=== PATIENT | female | born 1945 | race Caucasian/White ===

== ENCOUNTER 2016-10-27 10:07 | Day surgery (SDC) | payer MEDICARE, OTHER ==
[~2016-10-27 10:07] MED LIST: BUPIVACAINE HCL 0.75% INJ/PF (7.5 MG/1 ML) 10 ML SDV OD PRN; KETOROLAC TROMETHAMINE 0.45% 4 DROP/0.4 ML DROPERETTE OD PRN; LIDOCAINE 4% INJ/PF (40 MG/ML) 5 ML AMPUL OD PRN
[2016-10-27] MEDS ORDERED: PHENYLEPHRINE/KETOROLAC 1%-0.3% 4 ML VIAL ONE (10:14)
[2016-10-27] MEDS ORDERED: CHONDR SU A NA/HYALUR INTRAOC KIT (SURGICARE) ONE (10:15)
[2016-10-27] MEDS: BESIFLOXACIN HCL 0.6% OPH SUSP 5 ML BOTTLE OD PRN ×3 (10:35→12:00)
[2016-10-27] MEDS: TROPICAMIDE 1% OPH SOLN 3 ML OD PRN ×3 (10:35→10:54)
[2016-10-27] MEDS: TETRACAINE HCL 0.5% OPH SOLN 0.6 ML DROPERETTE OD PRN ×2 (10:35→10:55)
[2016-10-27] MEDS: CYCLOPENTOLATE 0.2%/PHENYLEPHRINE 1% OPH SOLN 2 ML OD PRN ×3 (10:35→10:54)
[2016-10-27] MEDS ORDERED: MIDAZOLAM 2 MG/2 ML INJ ONE (10:48)
--- NOTE | 2016-10-27 12:38 | [facility] DISCHARGE SUMMARY E ---
[facility] Discharge Summary NAME: CINTHIA COLLINS AGE: 71Y ADMITTED: 10/27/2016 DISCHARGED: 10/27/2016 PREOPERATIVE DIAGNOSES: 1. CATARACT, RIGHT EYE. 2. ASTIGMATISM, RIGHT EYE. POSTOPERATIVE DIAGNOSES: 1. CATARACT, RIGHT EYE. 2. ASTIGMATISM, RIGHT EYE. HOSPITAL COURSE: Patient is a 71-year-old who underwent uneventful cataract extraction with intraocular lens implant, right eye, on 10/27/2016. DISPOSITION: She will be discharged to home. She was instructed to resume preoperative medications; take Tylenol as needed for discomfort; to keep her eye shielded, to use Besivance, Ilevro, and Durezol at 3:00 p.m. and 8:00 p.m.; and to follow up in my office in 1 day. DICTATING PHYSICIAN: CHRISTI RIOS M.D. [id number] PHY#: [id number] ID: [id number] JOB#: [id number] ACCT: [id number] cc:CHRISTI RIOS M.D. >
--- NOTE | 2016-10-27 12:53 | [facility] OPERATIVE REPORT E ---
[facility] Operative Report NAME: CINTHIA COLLINS AGE: 71Y DATE OF SURGERY: 11/03/2016 ROOM: PREOPERATIVE DIAGNOSES: 1. CATARACT, RIGHT EYE. 2. ASTIGMATISM, RIGHT EYE. POSTOPERATIVE DIAGNOSES: 1. CATARACT, RIGHT EYE. 2. ASTIGMATISM, RIGHT EYE. PROCEDURE PERFORMED: Phacoemulsification with Toric intraocular lens implant, right eye. SURGEON: CHRISTI RIOS M.D. ANESTHESIA: Topical with MAC. DESCRIPTION OF PROCEDURE: The patient was brought to the operating room and placed in a seated position. Under topical anesthesia, the 0, 180, and 270 degree axes of the eye were marked using a marking level. The patient was placed in a reclining position and topical anesthesia was administered. This consisted of 4% lidocaine mixed with 0.75% Marcaine in a 1:1 ratio. A 2 x 1 cm pledget was placed in the superior fornix. A 1 x 1 cm pledget was placed in the inferior fornix. The eye was patched shut for 5 minutes. The patch and pledgets were removed. The eye was sterilely prepped and draped in the usual manner. Lid speculum was placed in the eye, and 4-0 black silk sutures were placed around the superior and the inferior rectus muscles to be used as traction. A conjunctival peritomy was made at the 135-degree axis. Hemostasis was obtained with bipolar cautery. A posterior limbal groove was created using a crescent knife and dissected anteriorly towards the cornea. A sharp point blade was used to create a paracentesis site at the 2 o'clock position. A 2.4 mm keratome was used to enter the anterior chamber through the groove. Viscoelastic was injected into the anterior chamber. An anterior capsulotomy was performed using Utrata forceps in a capsulorrhexis fashion. Hydrodissection and hydrodelineation were performed. Phacoemulsification was performed in [id number] technique. A total of 52 seconds of total phaco time was used. Following this, the I/A unit was used to remove residual cortex. Viscoelastic was injected into the capsular bag. Using the previously marked sites as reference, the 4-degree axis was marked on the eye. Intraocular lens Model [id number], 27.0 diopters, serial number [id number] was placed in the eye and rotated within 10 degrees of the final axis. The I/A unit was used to remove residual viscoelastic. The lens was rotated to the 4-degree axis and centered nicely. The wound was seen to be watertight under high and low pressure, and no sutures were placed. The 4-0 black silk sutures and lid speculum were removed. The eye was shielded after Besivance drops were placed. The patient tolerated the procedure well and was sent to the recovery room in good condition. DICTATING PHYSICIAN: CHRISTI RIOS M.D. [id number] PHY#: [id number] ID: [id number] JOB#: [id number] ACCT: [id number] cc:CHRISTI RIOS M.D. >
== END 2016-10-27 12:43 | disposition home or self-care (01) ==
LOC: SC 10:07
PROVIDERS: ATTEND Ophthalmology
PROC: 08RJ3JZ Replacement of Right Lens with Synthetic Substitute, Percutaneous Approach (ICD-10-PCS; principal; 2016-10-27 11:30)
DX: H25.813 Combined forms of age-related cataract, bilateral (principal); H52.201 Unspecified astigmatism, right eye; E11.9 Type 2 diabetes mellitus without complications; I10 Essential (primary) hypertension; E78.00 Pure hypercholesterolemia, unspecified; I70.90 Unspecified atherosclerosis; Z79.899 Other long term (current) drug therapy; Z85.89 Personal history of malignant neoplasm of other organs and systems; Z79.82 Long term (current) use of aspirin
CPT/HCPCS: 66984; 82962; V2632; J2250; J3490 ×3; A9270; C9447; 142

== ENCOUNTER 2016-11-17 09:02 | Day surgery (SDC) | payer MEDICARE ==
[~2016-11-17 09:02] MED LIST changes: -BUPIVACAINE HCL 0.75% INJ/PF (7.5 MG/1 ML) 10 ML SDV OD PRN; +BUPIVACAINE HCL 0.75% INJ/PF (7.5 MG/1 ML) 10 ML SDV OS PRN; +CHONDR SU A NA/HYALUR INTRAOC KIT (SURGICARE) ONE; +EPINEPHRINE INJ/PF 1 MG/1 ML AMPULE ONE; -KETOROLAC TROMETHAMINE 0.45% 4 DROP/0.4 ML DROPERETTE OD PRN; +KETOROLAC TROMETHAMINE 0.45% 4 DROP/0.4 ML DROPERETTE OS PRN; -LIDOCAINE 4% INJ/PF (40 MG/ML) 5 ML AMPUL OD PRN; +LIDOCAINE 4% INJ/PF (40 MG/ML) 5 ML AMPUL OS PRN; +PHENYLEPHRINE/KETOROLAC 1%-0.3% 4 ML VIAL ONE
[2016-11-17] MEDS: CYCLOPENTOLATE 0.2%/PHENYLEPHRINE 1% OPH SOLN 2 ML OS PRN ×3 (09:38→09:57)
[2016-11-17] MEDS: BESIFLOXACIN HCL 0.6% OPH SUSP 5 ML BOTTLE OS PRN ×5 (09:38→10:52)
[2016-11-17] MEDS: TROPICAMIDE 1% OPH SOLN 3 ML OS PRN ×3 (09:38→09:57)
[2016-11-17] MEDS: TETRACAINE HCL 0.5% OPH SOLN 0.6 ML DROPERETTE OS PRN ×2 (09:38→10:03)
[2016-11-17] MEDS ORDERED: MIDAZOLAM 2 MG/2 ML INJ ONE (09:55)
--- NOTE | 2016-11-17 13:23 | [facility] DISCHARGE SUMMARY E ---
[facility] Discharge Summary NAME: CINTHIA COLLINS AGE: 71Y ADMITTED: 11/17/2016 DISCHARGED: 11/17/2016 PREOPERATIVE DIAGNOSIS: Cataract, left eye. POSTOPERATIVE DIAGNOSIS: Cataract, left eye. HOSPITAL COURSE: The patient is a 71-year-old who underwent uneventful cataract extraction with toric intraocular lens implant on 11/17/2016. She will be discharged to home. She was instructed to resume preoperative medications, take Tylenol as needed for discomfort, to keep her eye shielded, to use Besivance, Durezol, and Ilevro at 3 p.m. and 8 p.m., and to followup in my office in 1 day. DICTATING PHYSICIAN: CHRISTI RIOS M.D. [id number] PHY#: [id number] ID: [id number] JOB#: [id number] ACCT: [id number] cc:CHRISTI RIOS M.D. >
--- NOTE | 2016-11-17 13:24 | [facility] OPERATIVE REPORT E ---
[facility] Operative Report NAME: CINTHIA COLLINS AGE: 71Y DATE OF SURGERY: 11/17/2016 ROOM: PREOPERATIVE DIAGNOSIS: Cataract, left eye. POSTOPERATIVE DIAGNOSIS: Cataract, left eye. PROCEDURE PERFORMED: Phacoemulsification with toric intraocular lens, left eye. SURGEON: Jayla Rios MD ANESTHESIA: Topical with MAC. INDICATIONS FOR SURGERY: Difficulty driving at night due to glare. Best corrected visual acuity with glare 20/40. PROCEDURE: The patient was taken to the Operating Room and placed in a seated position. The 0, 270 and 180 degree axis were marked with a marking level. The patient was placed in supine position and topical anesthesia was administered. This consisted of instrument wipe pledgets soaked in a solution of 4% Xylocaine mixed with 0.75% Marcaine in a 1:1 ratio. A 2 x 1 cm pledget was placed in the superior fornix. A 1 x 1 cm pledget was placed in the inferior fornix. The eye was patched shut for 5 minutes. The eye was sterilely prepped and draped in the usual manner. A lid speculum was placed in the eye and 4-0 black silk sutures were placed around the superior and the inferior rectus muscles to be used as traction. A conjunctival peritomy was made at the 135-degree axis. Hemostasis was obtained with bipolar cautery. A posterior limbal groove was created using a crescent knife and dissected anteriorly towards the cornea. A sharp point blade was used to create a paracentesis site at the 5 o'clock position. A 2.4-mm keratome was used to enter the anterior chamber through the groove. Viscoelastic was injected into the anterior chamber. An anterior capsulotomy was performed using Utrata forceps in a capsulorrhexis fashion. Hydrodissection and hydrodelineation were performed. Phacoemulsification was performed in [id number] technique. Total phaco time 5.97 CDE. Following this, the I/A unit was used to remove residual cortex. Viscoelastic was placed in the capsular bag. Intraocular lens model SN6AT4, 27.5 diopters, serial number [id number], was injected in the eye and placed within 10 degrees of the final axis. The axis of 180 was marked on the eye prior to inserting the lens. The I/A unit was used to remove residual viscoelastic. The lens was rotated to 180 degree axis and centered nicely. The wound was seen to be watertight under high and low pressure, and no sutures were placed. Then, 4-0 black silk sutures and lid speculum were removed. The eye was shielded after Besivance drops were placed. The patient tolerated the procedure well and was sent to recovery room in good condition. DICTATING PHYSICIAN: JAYLA RIOS M.D. [id number] PHY#: [id number] ID: [id number] JOB#: [id number] ACCT: [id number] cc:JAYLA RIOS M.D. >
== END 2016-11-17 11:28 | disposition home or self-care (01) ==
LOC: SC 09:02
PROVIDERS: ATTEND Ophthalmology
PROC: 08RK3JZ Replacement of Left Lens with Synthetic Substitute, Percutaneous Approach (ICD-10-PCS; principal; 2016-11-17 10:30)
DX: H25.812 Combined forms of age-related cataract, left eye (principal); Z96.1 Presence of intraocular lens; I10 Essential (primary) hypertension; Z79.899 Other long term (current) drug therapy; Z79.82 Long term (current) use of aspirin
CPT/HCPCS: 66984; 82962; V2632; J2250; J3490 ×3; A9270; C9447; 142; J0171

== ENCOUNTER 2018-08-24 05:55 | Observation (INO) | payer MEDICARE ==
[2018-08-24] MEDS ORDERED: ASPIRIN 81 MG TABLET, CHEWABLE PO ONE ×2 (06:20→06:35)
--- NOTE | 2018-08-24 06:46 | ER Document Report ---
ED Cardiac - General Chief Complaint: Palpitations Stated Complaint: PALPITATIONS Time Seen by Provider: 08/24/18 06:22 TRAVEL OUTSIDE OF THE [place] IN LAST 30 DAYS: No - HPI Patient complains to provider of: Chest tightness Was the onset of pain: Gradual Is the pain a: New problem Chest pain location: Substernal Quality of pain: Achy Chest pain radiation location: None Severity now: Mild Severity at worst: Mild Chest pain precipitating factors: At Rest Cardiac risk factors: Diabetes, Hypertension, Dyslipidemia Associated symptoms: None Exacerbated by: Denies Relieved by: Nothing Notes: Patient is a 73-year-old female that presents to the emergency department for chief complaint of palpitations and chest pain. Patient reports intermittent episodes of palpitations when she wakes up in the morning or lays on her left side over the last few months. She has an appointment to establish care with Dr. Willingham for these palpitations on Wednesday. Yesterday and today she had associated chest pain with her palpitations. She states it is substernal and nonradiating. The pain feels like a tight achy sensation. She denies aggravating or relieving factors. The pain started when she woke up this morning with the palpitations. The palpitations have now resolved but the achy pain continues. She denies any associated symptoms. She denies ever having a stress test done before. Her mother had heart disease in her 80s but there is no other family history of heart disease. She took a baby aspirin yesterday but has not had any today. Past Medical History: Retention, hyperlipidemia, diabetes, hypothyroidism Past Surgical History: Hysterectomy, partial colectomy Social History: Denies drugs alcohol and tobacco Family History: Reviewed and noncontributory for presenting illness Allergies: Reviewed, see documented allergy list. REVIEW OF SYSTEMS: CONSTITUTIONAL : No fever No chills No diaphoresis No recent illness EENT: No vision changes No congestion No sore throat CARDIOVASCULAR: chest pain palpitations RESPIRATORY: No shortness of breath No cough No difficulty breathing GASTROINTESTINAL: No abdominal pain No nausea No vomiting No diarrhea GENITOURINARY: No dysuria No hematuria No difficulty urinating MUSCULOSKELETAL: No back pain No leg pain No arm pain SKIN: No rashes No lesions LYMPHATIC: No swollen, enlarged glands. NEUROLOGICAL: No lightheadedness No headache No weakness No paresthesias PSYCHIATRIC: No anxiety No depression PHYSICAL EXAMINATION: Vital signs reviewed, nursing noted reviewed. GENERAL: Well-appearing, well-nourished and in no acute distress. HEAD: Atraumatic, normocephalic. EYES: Eyes appear normal, extraocular movements intact, sclera anicteric, conjunctiva are normal. ENT: nares patent, oropharynx clear without exudates. Moist mucous membranes. NECK: Normal range of motion, supple without lymphadenopathy LUNGS: Breath sounds clear to auscultation bilaterally and equal. No wheezes rales or rhonchi. HEART: Regular rate and rhythm without murmurs ABDOMEN: Soft, nontender, normoactive bowel sounds. No rebound, guarding, or rigidity. No masses appreciated. EXTREMITIES: Nontender, good range of motion, no pitting or edema. NEUROLOGICAL: No focal neurological deficits. Moves all extremities spontaneously Motor and sensory grossly intact on exam. PSYCH: Normal mood, normal affect. SKIN: Warm, Dry, normal turgor, no rashes or lesions noted on exposed skin - Related Data Allergies/Adverse Reactions: urea Allergy (Uncoded 08/07/16 05:39) Past Medical History - Social History Smoking Status: Never Smoker Family History: Reviewed & Not Pertinent - Past Medical History Cardiac Medical History: Reports: Hx Hypercholesterolemia - on meds, Hx Hypertension - on meds Denies: Hx Atrial Fibrillation, Hx Congestive Heart Failure, Hx Coronary Artery Disease, Hx Heart Attack, Hx Peripheral Vascular Disease, Hx Heart Murmur Pulmonary Medical History: Denies: Hx Asthma Neurological Medical History: Denies: Hx Cerebrovascular Accident, Hx Seizures Endocrine Medical History: Reports: Hx Hypothyroidism - on meds. Denies: Hx Graves' Disease, Hx Hyperthyroidism Renal/ Medical History: Denies: Hx Ovarian Cysts, Hx Pelvic Inflammatory Disease Malignancy Medical History: Reports: Hx Cervical Cancer. Denies: Hx Breast Cancer, Hx Leukemia, Hx Ovarian Cancer GI Medical History: Reports: Hx Gastroesophageal Reflux Disease - occ. Denies: Hx Crohn's Disease, Hx Hepatitis, Hx Hiatal Hernia, Hx Irritable Bowel, Hx Liver Failure, Hx Pancreatitis, Hx Ulcer Musculoskeletal Medical History: Reports Hx Arthritis - generalized, Denies Hx Fibromyalgia, Denies Hx Muscular Dystrophy Traumatic Medical History: Denies: Hx Fractures Infectious Medical History: Denies: Hx Hepatitis, Hx HIV Past Surgical History: Reports: Hx Hysterectomy. Denies: Hx Appendectomy, Hx Bowel Surgery, Hx Cholecystectomy, Hx Colostomy, Hx Coronary Artery Bypass Graft , Hx Gastric Bypass Surgery, Hx Herniorrhaphy, Hx Mastectomy, Hx Open Heart Surgery, Hx Pacemaker, Hx Tonsillectomy, Hx Tubal Ligation Review of Systems - Review of Systems Notes: Dictated Physical Exam - Vital signs Vitals: Temp Pulse Resp BP Pulse Ox 98.4 F 75 14 175/70 H 99 08/24/18 05:58 08/24/18 05:58 08/24/18 05:58 08/24/18 05:58 08/24/18 05:58 - Notes Notes: Dictated Course - Re-evaluation Re-evalutation: 08/24/18 06:46 Vitals reviewed. Nursing notes reviewed. Patient given aspirin for her chest pain and placed on telemetry monitoring. EKG shows no acute ischemic changes or dysrhythmia 08/24/18 08:29 Patient reevaluated and is pain-free. Lab work including troponin is unremarkable. She has no electrolyte derangements. Chest x-ray is normal. Patient will be admitted to the hospital for telemetry monitoring and further evaluation of her chest pain. Case discussed with Funmilayo Joyce who accepted admission Laboratory 08/24/18 08/24/18 08/24/18 06:41 06:41 06:41 WBC 7.7 RBC 4.21 Hgb 13.0 Hct 37.9 MCV 90 MCH 31.0 MCHC 34.4 RDW 12.9 Plt Count 279 Seg Neutrophils % 56.0 Lymphocytes % 27.7 Monocytes % 8.6 Eosinophils % 6.6 H Basophils % 1.1 Absolute Neutrophils 4.3 Absolute Lymphocytes 2.1 Absolute Monocytes 0.7 Absolute Eosinophils 0.5 Absolute Basophils 0.1 Sodium 142.7 Potassium 4.1 Chloride 101 Carbon Dioxide 27 Anion Gap 15 BUN 19 Creatinine 1.02 Est GFR ( Amer) > 60 Est GFR (Non-Af Amer) 53 L Glucose 141 H Calcium 9.9 Total Bilirubin 0.4 Direct Bilirubin 0.1 Neonat Total Bilirubin Not Reportable Neonat Direct Bilirubin Not Reportable Neonat Indirect Bili Not Reportable AST 19 ALT 14 Alkaline Phosphatase 80 Troponin I < 0.012 Total Protein 6.9 Albumin 4.1 TSH 08/24/18 06:41 WBC RBC Hgb Hct MCV MCH MCHC RDW Plt Count Seg Neutrophils % Lymphocytes % Monocytes % Eosinophils % Basophils % Absolute Neutrophils Absolute Lymphocytes Absolute Monocytes Absolute Eosinophils Absolute Basophils Sodium Potassium Chloride Carbon Dioxide Anion Gap BUN Creatinine Est GFR ( Amer) Est GFR (Non-Af Amer) Glucose Calcium Total Bilirubin Direct Bilirubin Neonat Total Bilirubin Neonat Direct Bilirubin Neonat Indirect Bili AST ALT Alkaline Phosphatase Troponin I Total Protein Albumin TSH 2.36 Chest X-Ray 08/24/18 06:20 IMPRESSION: No acute cardiopulmonary findings. - Vital Signs Vital signs: Temp Pulse Resp BP Pulse Ox 98.4 F 75 14 131/55 H 94 08/24/18 05:58 08/24/18 05:58 08/24/18 07:01 08/24/18 07:01 08/24/18 07:01 - Laboratory Result Diagrams: 08/24/18 06:41 08/24/18 06:41 Laboratory results interpreted by me: 08/24/18 08/24/18 06:41 06:41 Eosinophils % 6.6 H Est GFR (Non-Af Amer) 53 L Glucose 141 H - EKG Interpretation by Me Additional EKG results interpreted by me: 08/24/18 06:45 Interpreted by myself [id number]: Normal sinus rhythm, rate 78, normal axis, no ectopy, no ST elevation, probable old inferior infarct Discharge - Discharge Clinical Impression: Palpitations Chest pain Qualifiers: Chest pain type: unspecified Qualified Code(s): R07.9 - Chest pain, unspecified Condition: Stable Disposition: ADMITTED OBSERVATION Admitting Provider: Hospitalist Unit Admitted: Telemetry
[2018-08-24 06:50] LABS: ABSOLUTE BASOPHILS # (AUTO) 0.1 10^3/uL (0.0-0.2); ABSOLUTE EOSINOPHILS # (AUTO) 0.5 10^3/uL (0.0-0.6); ABSOLUTE LYMPHOCYTES (AUTO) 2.1 10^3/uL (0.5-4.7); ABSOLUTE MONOCYTES (AUTO) 0.7 10^3/uL (0.1-1.4); ABSOLUTE NEUT (AUTO) 4.3 10^3/uL (1.7-8.2); BASOPHILS % (AUTO) 1.1 % (0-2); EOSINOPHILS % (AUTO) 6.6 % (0-6); HEMATOCRIT 37.9 % (36.0-47.0); LYMPHOCYTES % (AUTO) 27.7 % (13-45); MEAN CORPUSCULAR HGB CONC 34.4 g/dL (32.0-36.0); MEAN CORPUSCULAR VOLUME 90 fl (80-97); MONOCYTES % (AUTO) 8.6 % (3-13); PLATELET COUNT 279 10^3/uL (150-450); RED BLOOD COUNT 4.21 10^6/uL (3.72-5.28); RED CELL DISTRIBUTION WIDTH 12.9 % (11.5-14.0); TOTAL CELLS COUNTED % (AUTO) 100 %; WHITE BLOOD COUNT 7.7 10^3/uL (4.0-10.5)
[2018-08-24 07:08] LABS: ALANINE AMINOTRANSFERASE 14 U/L (9-52); ALBUMIN 4.1 g/dL (3.5-5.0); ALKALINE PHOSPHATASE 80 U/L (38-126); ANION GAP 15 (5-19); ASPARTATE AMINO TRANSFERASE 19 U/L (14-36); BILIRUBIN,DIRECT 0.1 mg/dL (0.0-0.4); BILIRUBIN,TOTAL 0.4 mg/dL (0.2-1.3); BLOOD UREA NITROGEN 19 mg/dL (7-20); CALCIUM 9.9 mg/dL (8.4-10.2); CARBON DIOXIDE 27 mmol/L (22-30); CHLORIDE 101 mmol/L (98-107); GLUCOSE 141 mg/dL (75-110); POTASSIUM 4.1 mmol/L (3.6-5.0); SODIUM 142.7 mmol/L (137-145); TOTAL PROTEIN 6.9 g/dL (6.3-8.2)
--- NOTE | 2018-08-24 07:08 | RADIOLOGY REPORT (SQ) ---
EXAM DESCRIPTION: XR CHEST 1 VIEW COMPLETED DATE/TME: 08/24/2018 06:20 CLINICAL HISTORY: 73 years Female, cp COMPARISON: None. NUMBER OF VIEWS/TECHNIQUE: 1/AP FINDINGS: Adequate lung volume, clear parenchyma, normal cardiac silhouette, and intact bony thorax. IMPRESSION: No acute cardiopulmonary findings.
--- NOTE | 2018-08-24 07:45 | EKG REPORT ---
SEVERITY:- ABNORMAL ECG - SINUS RHYTHM PROBABLE INFERIOR INFARCT, OLD LATERAL LEADS ARE ALSO INVOLVED : Confirmed by: Sudhir Garcia MD 24-Aug-2018 07:44:47
[2018-08-24] MEDS ORDERED: NITROGLYCERIN 0.4 MG/TAB 25 TAB/BOTTLE SL PRN (09:08)
[2018-08-24] MEDS ORDERED: MORPHINE SULFATE 10 MG/ML INJ IV PRN (09:08)
[2018-08-24] MEDS ORDERED: PROMETHAZINE HCL INJ 25 MG/1 ML VIAL IV PRN (09:08)
[2018-08-24] MEDS ORDERED: DOCUSATE SODIUM 100 MG CAPSULE PO PRN (09:08)
[2018-08-24] MEDS ORDERED: MAG HYDROX/AL HYDROX/SIMETH SUSP 30 ML UDCUP PO PRN (09:08)
[2018-08-24] MEDS ORDERED: DEXTROSE 50%-WATER 25 GM/50 ML DISP.SYRIN IV PRN ×2 (09:12)
[2018-08-24] MEDS ORDERED: GLUCAGON,HUMAN RECOMB 1 MG INJ IM PRN (09:12)
[2018-08-24] MEDS ORDERED: INSULIN LISPRO 100 UNIT/ML 3 ML VIAL SUBCUT PRN (09:12)
[2018-08-24] MEDS ORDERED: DEXTROSE 40% GEL 15 GM TUBE PO PRN ×2 (09:12)
--- NOTE | 2018-08-24 09:36 | PDOC H&P ---
History of Present Illness Admission Date/PCP: ISACC BENNETT MD Patient complains of: Chest pain, palpitations History of Present Illness: CINTHIA COLLINS is a 73 year old female with a past medical history significant for hypertension, hyperlipidemia, diabetes mellitus, and remote vaginal cancer who presented to the emergency department today with a complaint of racing heartbeat and chest discomfort. The patient has had intermittent episodes of palpitations over the last several months (most often noted when lying on her left side) and actually has her first appointment scheduled with Dr. Willingham's office on Wednesday. However, the last 2 mornings she has awoken in the corporate consultant hours to use the restroom and found that she has had a racing heart rate prior to getting out of bed. The patient states that on both occasions the episode resolved after Valsalva maneuver (she had read on the Internet that intentional cough could occasionally resolve rapid heart rates). She decided to be seen in the emergency department today as these episodes were different than previously; they were associated with lightheadedness and mild chest discomfort. She states that her chest discomfort was vague in nature, nonradiating, and also resolved with Valsalva. Evaluation in the emergency department was unremarkable. EKG demonstrated normal sinus rhythm without acute changes, benign chest x-ray, and essentially normal laboratory evaluation including a troponin of <0.012 and normal TSH. Of note, the electrical tech/project manager reported frequent PVCs, especially shortly after her arrival. The patient is referred to the hospitalist service for observational admission and chest pain rule out. Past Medical History Cardiac Medical History: Reports: Hyperlipidema, Hypertension Denies: Atrial Fibrillation, Congestive Heart Failure, Coronary Artery Disease, Myocardial Infarction, Peripheral Vascular Disease, Heart Murmur Pulmonary Medical History: Denies: Asthma, Chronic Obstructive Pulmonary Disease (COPD) Neurological Medical History: Denies: Ischemic CVA, Seizures Endocrine Medical History: Reports: Diabetes Mellitus Type 2, Hypothyroidism Renal/ Medical History: Reports: None Malignancy Medical History: Reports: Other - Vaginal cancer Denies: Breast Cancer, Leukemia, Ovarian Cancer GI Medical History: Reports: Gastroesophageal Reflux Disease Denies: Crohn's Disease, Hepatitis, Hiatal Hernia Musculoskeltal Medical History: Reports: Arthritis Denies: Fibromyalgia Skin Medical History: Reports: None Psychiatric Medical History: Reports: None Traumatic Medical History: Reports: None Hematology: Reports: Anemia Denies: Hemophilia Infectious Medical History: Reports: None Past Surgical History Past Surgical History: Reports: Hysterectomy Denies: Cardiac Catheterization Social History Information Source: Patient Smoking Status: Never Smoker Frequency of Alcohol Use: None Hx Recreational Drug Use: No Hx Prescription Drug Abuse: No Family History Family History: Reviewed & Not Pertinent, CAD Parental Family History Reviewed: Yes Children Family History Reviewed: Yes Sibling(s) Family History Reviewed.: Yes Medication/Allergy Home Medications: Levothyroxine Sodium [Synthroid 50 Mcg Tablet] 50 mcg PO DAILY 04/05/13 Multivitamin [Multi Vitamin Daily] 1 each PO DAILY 04/05/13 [place]-3 Fatty Acids/Fish Oil [Fish Oil 1,[address]] 1 each PO DAILY Pravastatin Sodium [Pravachol] 40 mg PO DAILY 04/05/13 Saxagliptin HCl/Metformin HCl [Kombiglyze Xr 2.5-1,000 mg Tab] 1 each PO BID Valsartan/Hydrochlorothiazide [Valsartan-Hctz 320-12.5 mg Tab] 1 each PO DAILY 04/11/13 Aspirin [Aspirin EC] 81 mg PO DAILY 07/31/16 Besifloxacin HCl [Besivance] 1 drop OP . 3 & 8 PM TODAY 10/27/16 Difluprednate [Durezol] 1 drop OP . 3 & 8 PM TODAY 10/27/16 Nepafenac [Ilevro] 1 drop OP . 3 & 8 PM TODAY 10/27/16 Allergies/Adverse Reactions: urea Allergy (Uncoded 08/07/16 05:39) Review of Systems Constitutional: ABSENT: chills, fever(s), headache(s), weight gain, weight loss Eyes: ABSENT: visual disturbances Ears: ABSENT: hearing changes Cardiovascular: PRESENT: chest pain, palpitations. ABSENT: dyspnea on exertion , edema, orthropnea Respiratory: ABSENT: cough, hemoptysis Gastrointestinal: ABSENT: abdominal pain, constipation, diarrhea, hematemesis, hematochezia, nausea, vomiting Genitourinary: ABSENT: dysuria, hematuria Musculoskeletal: ABSENT: joint swelling Integumentary: ABSENT: rash, wounds Neurological: PRESENT: dizziness. ABSENT: abnormal gait, abnormal speech, confusion, focal weakness, syncope Psychiatric: ABSENT: anxiety, depression, homidical ideation, suicidal ideation Endocrine: ABSENT: cold intolerance, heat intolerance, polydipsia, polyuria Hematologic/Lymphatic: ABSENT: easy bleeding, easy bruising Physical Exam Vital Signs: Temp Pulse Resp BP Pulse Ox 98.4 F 75 15 155/76 H 97 08/24/18 05:58 08/24/18 05:58 08/24/18 08:31 08/24/18 08:31 08/24/18 08:31 Intake & Output 08/23/18 08/24/18 08/25/18 06:59 06:59 06:59 Weight 81 kg General appearance: PRESENT: no acute distress, cooperative - Pleasant, well- developed, well-nourished - Overweight Head exam: PRESENT: atraumatic, normocephalic Eye exam: PRESENT: conjunctiva pink, EOMI, PERRLA. ABSENT: scleral icterus Ear exam: PRESENT: normal external ear exam Mouth exam: PRESENT: moist, tongue midline Neck exam: ABSENT: carotid bruit, JVD, lymphadenopathy, thyromegaly Respiratory exam: PRESENT: clear to auscultation catherine, symmetrical, unlabored. ABSENT: rales, rhonchi, wheezes Cardiovascular exam: PRESENT: RRR, +S1, +S2. ABSENT: diastolic murmur, rubs, systolic murmur Pulses: PRESENT: normal dorsalis pedis pul Vascular exam: PRESENT: normal capillary refill GI/Abdominal exam: PRESENT: normal bowel sounds, soft. ABSENT: distended, guarding, mass, organolmegaly, rebound, tenderness Rectal exam: PRESENT: deferred Extremities exam: PRESENT: full ROM. ABSENT: calf tenderness, clubbing, pedal edema Neurological exam: PRESENT: alert, awake, oriented to person, oriented to place , oriented to time, oriented to situation, CN II-XII grossly intact. ABSENT: motor sensory deficit Psychiatric exam: PRESENT: appropriate affect, normal mood. ABSENT: homicidal ideation, suicidal ideation Skin exam: PRESENT: dry, intact, warm. ABSENT: cyanosis, rash Results Laboratory Results: 08/24/18 06:41 08/24/18 06:41 08/24/18 08/24/18 08/24/18 06:41 06:41 06:41 WBC 7.7 RBC 4.21 Hgb 13.0 Hct 37.9 MCV 90 MCH 31.0 MCHC 34.4 RDW 12.9 Plt Count 279 Seg Neutrophils % 56.0 Lymphocytes % 27.7 Monocytes % 8.6 Eosinophils % 6.6 H Basophils % 1.1 Absolute Neutrophils 4.3 Absolute Lymphocytes 2.1 Absolute Monocytes 0.7 Absolute Eosinophils 0.5 Absolute Basophils 0.1 Sodium 142.7 Potassium 4.1 Chloride 101 Carbon Dioxide 27 Anion Gap 15 BUN 19 Creatinine 1.02 Est GFR ( Amer) > 60 Est GFR (Non-Af Amer) 53 L Glucose 141 H Calcium 9.9 Total Bilirubin 0.4 AST 19 ALT 14 Alkaline Phosphatase 80 Total Protein 6.9 Albumin 4.1 TSH 2.36 08/24/18 06:41 Troponin I < 0.012 Impressions: Chest X-Ray 08/24/18 06:20 IMPRESSION: No acute cardiopulmonary findings. Assessment & Plan - Diagnosis (1) Chest pain Qualifiers: Chest pain type: unspecified Qualified Code(s): R07.9 - Chest pain, unspecified Is this a current diagnosis for this admission?: Yes Plan: The patient reports vague, nonradiating, chest discomfort associated with sensation of palpitations/heart racing that resolved following a Valsalva maneuver. Her discomfort is likely related to PSVT or benign ectopic beats felt while lying down as the patient reports that symptoms tend to occur in the corporate consultant hours and most frequently when lying to her left side. However, she does have a moderate HEART Score of 5; the patient has multiple risk factors including age, diabetes mellitus, hypertension, hyperlipidemia, obesity and moderately suspicious HPI. She is admitted to telemetry for chest pain rule out. Patient is admitted to the medical floor and continuous cardiac telemetry. TSH is normal. Initial troponin is negative; will continue to trend. Lipid panel and A1c with a.m. lab work. We will obtain an echocardiogram. Anticipate stress testing tomorrow morning. Daily aspirin and full dose Lovenox. Cardiac diet with daily weights. We will resume the patient's antihypertensive medications once reconciled by pharmacy. (2) Palpitations Is this a current diagnosis for this admission?: Yes Plan: As above. (3) Hyperlipidemia Is this a current diagnosis for this admission?: Yes Plan: Lipid panel with a.m lab work. Cardiac diet. Resume home dose statin therapy once reconciled. (4) Hypertension Is this a current diagnosis for this admission?: Yes Plan: Cardiac diet. Will resume home medication regiment once reconciled. (5) Hypothyroidism Is this a current diagnosis for this admission?: Yes Plan: TSH 2.36 Will resume home dose levothyroxine once reconciled. - Time Time Spent: 50 to 70 Minutes Medications reviewed and adjusted accordingly: Yes Anticipated discharge: Home Within: within 24 hours
[2018-08-24] MEDS: ASPIRIN 81 MG TABLET, CHEWABLE PO SCH (10:06)
[2018-08-24] MEDS: ENOXAPARIN SODIUM INJ 80 MG/0.8 ML DISP.SYRIN SUBCUT SCH ×2 (10:07→21:32)
[2018-08-24] MEDS: VALSARTAN 160 MG TABLET PO SCH (11:45)
[2018-08-24] MEDS: HYDROCHLOROTHIAZIDE 12.5 MG TABLET PO SCH (11:45)
--- NOTE | 2018-08-24 13:52 | XCELERA REPORT ---
[address] [address] Transthoracic Echocardiogram Report Name: CINTHIA COLLINS Age: 73 yrs Gender: Female : 1945 Patient Status: Inpatient Patient Location: [address] [place], [place] [address] Study Date: 08/24/2018 11:04 AM Height: 64 in Weight: 178 lb BSA: 1.9 m2 Procedure: A complete two-dimensional transthoracic echocardiogram was performed (2D, M-mode, spectral and color flow Doppler). The study was technically adequate with some images being suboptimal in quality. Reason For Study: Palpitations, Chest pain Ordering Physician: RIKA SÁNCHEZ, ALEXUSC Performed By: Olga Carson Interpretation Summary The left ventricular ejection fraction is within normal limits. There is mild concentric left ventricular hypertrophy. The left ventricle is grossly normal size. Doppler measurements suggest pseudonormalized left ventricular relaxation, which is associated with grade II/IV or mild to moderate diastolic dysfunction Wall motion cannot be accurately commented on, but no definite regional wall motion abnormalities noted. Borderline right ventricular enlargement. The right ventricular systolic function is normal. The left atrium is mildly dilated. The right atrium is normal in size There is a trace amount of mitral regurgitation There is no mitral valve stenosis. There is a mild amount of aortic regurgitation There is no aortic valve stenosis There is a trace to mild amount of tricuspid regurgitation There is mild pulmonary hypertension by echo Right ventricular systolic pressure is estimated to be elevated at 30-40mmHg. The aortic root is not well visualized but is probably normal size. There is no pericardial effusion. MMode/2D Measurements & Calculations RVDd: 3.4 cm LVIDd: 4.0 cm FS: 43.4 % Ao root diam: 2.3 cm IVSd: 0.96 cm LVIDs: 2.3 cm EDV(Teich): 69.0 ml Ao root area: 4.3 cm2 LVPWd: 1.0 cm ESV(Teich): 17.2 ml LA dimension: 4.0 cm EF(Teich): 75.1 % Doppler Measurements & Calculations MV E max snow: MV P1/2t max snow: Ao V2 max: LV V1 max P.3 cm/sec 92.3 cm/sec 149.3 cm/sec 4.0 mmHg MV A max snow: MV P1/2t: 72.9 msec Ao max P.9 mmHg LV V1 max: 126.4 cm/sec MVA(P1/2t): 3.0 cm2 99.8 cm/sec MV E/A: 0.73 MV dec slope: 371.1 cm/sec2 MV dec time: 0.23 sec PA V2 max: TR max snow: MV P1/2t-pr_phl: 92.8 cm/sec 281.0 cm/sec 72.9 msec PA max P.4 mmHg TR max P.6 mmHg Left Ventricle The left ventricle is grossly normal size. There is mild concentric left ventricular hypertrophy. The left ventricular ejection fraction is within normal limits. Doppler measurements suggest pseudonormalized left ventricular relaxation, which is associated with grade II/IV or mild to moderate diastolic dysfunction. Wall motion cannot be accurately commented on, but no definite regional wall motion abnormalities noted. Right Ventricle Borderline right ventricular enlargement. There is normal right ventricular wall thickness. The right ventricular systolic function is normal. Atria The right atrium is normal in size. The left atrium is mildly dilated. Interarterial septum not well visualized and not well dopplered. Cannot comment on ASD/PFO presence. Mitral Valve The mitral valve is grossly normal. There is no mitral valve stenosis. There is a trace amount of mitral regurgitation. Aortic Valve The aortic valve is grossly normal. There is no aortic valve stenosis. There is a mild amount of aortic regurgitation. Tricuspid Valve The tricuspid valve is not well visualized, but is grossly normal. There is no tricuspid stenosis. There is a trace to mild amount of tricuspid regurgitation. There is mild pulmonary hypertension by echo. Right ventricular systolic pressure is estimated to be elevated at 30-40mmHg. Pulmonic Valve The pulmonic valve is not well visualized. Great Vessels The aortic root is not well visualized but is probably normal size. The inferior vena cava appeared normal and decreased > 50% with respiration (RAP 5-10 mmHg). Effusions There is no pericardial effusion. : JOSIAH CASTANON > Paulina Willingham
[2018-08-24] MEDS: LANSOPRAZOLE 15 MG TAB.RAP.DR PO SCH (16:09)
--- NOTE | 2018-08-24 19:48 | PDOC CONSULTATION ---
Consultation Consult Date: 08/24/18 Attending physician:: ERIKA CROCKETT Consult reason:: Palpitations and chest pain History of Present Illness Admission Date/PCP: 08/24/18 09:14 ISACC BENNETT MD Patient complains of: Palpitations and chest pain History of Present Illness: CINTHIA COLLINS is a 73 year old female with a past medical history significant for hypertension, hyperlipidemia, diabetes mellitus, and remote vaginal cancer who presented to the emergency department today with a complaint of racing heartbeat and chest discomfort. The patient has had intermittent episodes of palpitations over the last several months (most often noted when lying on her left side) and actually has her first appointment scheduled with Dr. Willingham's office on Wednesday. 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 The patient states that on both occasions the episode resolved after Valsalva maneuver (she had read on the Internet that intentional cough could occasionally resolve rapid heart rates). She decided to be seen in the emergency department today as these episodes were different than previously; they were associated with lightheadedness and mild chest discomfort. She states that her chest discomfort was vague in nature, nonradiating, and also resolved with Valsalva. Evaluation in the emergency department was unremarkable. EKG demonstrated normal sinus rhythm without acute changes, benign chest x-ray, and essentially normal laboratory evaluation including a troponin of <0.012 and normal TSH. Of note, the pre sales technical engineer reported frequent PVCs, especially shortly after her arrival. The patient is referred to the hospitalist service for observational admission and chest pain rule out. This history obtained by the hospitalist was reviewed and confirmed. Patient claims that most of her spells happened when she is laying down, on her left side. Patient has awakened up with this palpitations. Patient does give history of snoring, daytime fatigue and some sleepiness. Past Medical History Cardiac Medical History: Reports: Hyperlipidema, Hypertension Denies: Atrial Fibrillation, Congestive Heart Failure, Coronary Artery Disease, Myocardial Infarction, Peripheral Vascular Disease, Heart Murmur Pulmonary Medical History: Denies: Asthma, Chronic Obstructive Pulmonary Disease (COPD) Neurological Medical History: Denies: Ischemic CVA, Seizures Endocrine Medical History: Reports: Diabetes Mellitus Type 2, Hypothyroidism Denies: Hyperthyroidism Renal/ Medical History: Reports: None Malignancy Medical History: Reports: Cervical Cancer, Other - Vaginal cancer Denies: Breast Cancer, Leukemia, Ovarian Cancer GI Medical History: Reports: Gastroesophageal Reflux Disease Denies: Crohn's Disease, Hepatitis, Hiatal Hernia Musculoskeltal Medical History: Reports: Arthritis Denies: Fibromyalgia Skin Medical History: Reports: None Psychiatric Medical History: Reports: None Traumatic Medical History: Reports: None Hematology: Reports: Anemia Denies: Hemophilia, Sickle Cell Disease Infectious Medical History: Reports: None Denies: HIV Past Surgical History Past Surgical History: Reports: Hysterectomy Denies: Amputation, Appendectomy, Cardiac Catheterization, Cholecystectomy, Colostomy, Coronary Artery Bypass Graft, Gastric Bypass Surgery, Herniorrhaphy, Mastectomy, Pacemaker, Tonsillectomy, Tubal Ligation Social History Information Source: Patient Smoking Status: Never Smoker Frequency of Alcohol Use: None Hx Recreational Drug Use: No Drugs: None Hx Prescription Drug Abuse: No - Advance Directive Resuscitation Status: Full Code Family History Family History: Reviewed & Not Pertinent, CAD Parental Family History Reviewed: Yes Children Family History Reviewed: Yes Sibling(s) Family History Reviewed.: Yes Medication/Allergy Home Medications: Levothyroxine Sodium [Synthroid 50 Mcg Tablet] 50 mcg PO Q6AM 04/05/13 Multivitamin [Multi Vitamin Daily] 1 each PO DAILY 04/05/13 [place]-3 Fatty Acids/Fish Oil [Fish Oil 1,[address]] 1 each PO DAILY Pravastatin Sodium [Pravachol] 40 mg PO QHS 04/05/13 Saxagliptin HCl/Metformin HCl [Kombiglyze Xr 2.5-1,000 mg Tab] 1 tab PO BID Valsartan/Hydrochlorothiazide [Valsartan-Hctz 320-12.5 mg Tab] 1 each PO DAILY 04/11/13 Aspirin [Aspirin EC] 81 mg PO DAILY 07/31/16 Empagliflozin [Jardiance] 10 mg PO DAILY 08/24/18 Flaxseed Oil [Flax Seed Oil] 1,000 mg PO DAILY 08/24/18 Valacyclovir HCl [Valtrex 500 Mg Tablet] 500 mg PO DAILY 08/24/18 Allergies/Adverse Reactions: urea Allergy (Uncoded 08/07/16 05:39) Review of Systems Review of Systems: Please see history of present illness and past medical history as wall. Constitutional: No fever or chills reported. Head : No recent chronic headaches, recent head injury. Eyes: No recent eye pain, diplopia, redness, discharge, acute visual changes. Ears: No recent chronic ear pain, acute hearing loss, ear discharge. Oral cavity: No recent ulcerations, bleeding, oral cavity discomfort. Neck: No recent acute neck pain reported. Hematologic: No recent easy bruising or bleeding. Lymphatic: No recent lymph node enlargement reported. Cardiovascular system review: See history of present illness. Respiratory system review: No hemoptysis or blood clots in the lungs reported. Mild Shortness of breath on exertion Gastrointestinal system review: Negative for any recent acute hematemesis, melena. Genitourinary system review: No recent acute or chronic hematuria, flank pain, UTI etc. reported. Skin system review: Negative for any recent abnormal bruising, no rash, no pruritus reported. Neurologic: No prior history of strokes, mini strokes, seizure disorder. Psychologic: No history of major psychosis or major depression reported. Musculoskeletal: Minor aches and pains reported. No acute joint swelling reported. Endocrine: No recent polyuria, polydipsia, recent heat or cold intolerance. Physical Exam Vital Signs: Temp Pulse Resp BP Pulse Ox 97.8 F 66 16 142/68 H 97 08/24/18 17:25 08/24/18 17:25 08/24/18 17:25 08/24/18 17:25 08/24/18 17:25 Exam: GENERAL: well-nourished and in no acute distress. Alert and oriented x3 HEAD: Atraumatic, normocephalic. EYES: JUNE, sclera anicteric, conjunctiva are normal. ENT: Moist mucous membranes. No oral ulcerations or bleeding gums noted. No obvious ear, nose or throat abnormalities noted. NECK: supple without lymphadenopathy. Trachea is central. No cervical or axillary lymphadenopathy noted. Carotids are 2+, JVD WNL LUNGS: Breath sounds clear bilaterally. No wheezes rales or rhonchi noted. No significant dullness noted on percussion. CHEST: Palpation of the chest wall shows no significant chest wall tenderness. 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 ABDOMEN: Soft, no significant tenderness appreciated, normoactive bowel sounds. No guarding, no rebound. No rigidity noted . No masses appreciated. EXTREMITIES: Pedal pulses are 1-2+, no calf tenderness noted. No clubbing or cyanosis. negative pedal edema noted NEUROLOGICAL: Focused neurological exam showed no significant neurologic deficit. Normal speech, no focal weakness appreciated. PSYCH: Normal mood, normal affect. Judgment and insight within normal limits. SKIN: No significant ecchymosis, skin is noted to be warm. MUSCULOSKELETAL EXAM: No significant acute joint swelling noted. Results Laboratory Results: 08/24/18 08/24/18 10:10 16:20 Troponin I < 0.012 < 0.012 EKG Comments: Sinus rhythm, borderline Q waves inferiorly, cannot rule out inferior myocardial infarction Impressions: Chest X-Ray 08/24/18 06:20 IMPRESSION: No acute cardiopulmonary findings. Assessment & Plan - Diagnosis (1) Chest pain Qualifiers: Chest pain type: unspecified Qualified Code(s): R07.9 - Chest pain, unspecified Is this a current diagnosis for this admission?: Yes (2) Diabetes Qualifiers: Diabetes mellitus type: type 2 Diabetes mellitus [facility] insulin use: unspecified termite technician insulin use status Diabetes mellitus complication status : with unspecified complications Qualified Code(s): E11.8 - Type 2 diabetes mellitus with unspecified complications Is this a current diagnosis for this admission?: Yes (3) Palpitations Is this a current diagnosis for this admission?: Yes (4) Hyperlipidemia Qualifiers: Hyperlipidemia type: unspecified Qualified Code(s): E78.5 - Hyperlipidemia , unspecified Is this a current diagnosis for this admission?: Yes (5) Hypertension Qualifiers: Hypertension type: unspecified Qualified Code(s): I10 - Essential (primary ) hypertension Is this a current diagnosis for this admission?: Yes - Notes Notes: Chest pain: Chest pain related to palpitations. Recommend that patient be placed on cardiac event monitor on discharge and have a outpatient stress test scheduled. Patient does have a follow-up appointment with me on Wednesday which she should keep. Palpitations: Patient will benefit from a cardiac event monitor which can be scheduled from my office. In fact patient could go to my office to get this done on discharge if needed. Hypertension: Blood pressure goal should be 140/90. Recommend adding metoprolol succinate 25 mg p.o. twice daily. This was discussed with Dr. Mello. Hyperlipidemia: Continue with current statin therapy. Diabetes: Recommend good control of blood sugar but avoid any hypo-or hyperglycemia. - Time Time Spent: 30 to 50 Minutes - More than 50% of the time spent coordinating care , discussing management plans with involved caregivers. Management plans discussed with involved personnels. Medical decision making was of moderate to high complexity, patient's has multiple comorbidities. Medications reviewed and adjusted accordingly: Yes
[2018-08-24] MEDS: METOPROLOL SUCCINATE 25 MG TAB.SR.24H PO SCH (21:31)
[2018-08-24] MEDS ORDERED: ATORVASTATIN CALCIUM 10 MG TABLET PO SCH (22:00)
[2018-08-24] MEDS ORDERED: (PENDING PHARMACY ID) (Pravastatin Sodium [Pravachol] 40 MG) PO SCH (22:00)
[2018-08-25 05:29] LABS: HEMATOCRIT 38.4 % (36.0-47.0); HEMOGLOBIN 12.8 g/dL (12.0-15.5); MEAN CORPUSCULAR HEMOGLOBIN 30.4 pg (27.0-33.4); MEAN CORPUSCULAR HGB CONC 33.5 g/dL (32.0-36.0); MEAN CORPUSCULAR VOLUME 91 fl (80-97); PLATELET COUNT 283 10^3/uL (150-450); RED BLOOD COUNT 4.23 10^6/uL (3.72-5.28); RED CELL DISTRIBUTION WIDTH 13.1 % (11.5-14.0); WHITE BLOOD COUNT 9.5 10^3/uL (4.0-10.5)
[2018-08-25 05:50] LABS: ANION GAP 12 (5-19); BLOOD UREA NITROGEN 21 mg/dL (7-20); CALCIUM 10.2 mg/dL (8.4-10.2); CARBON DIOXIDE 29 mmol/L (22-30); CHLORIDE 102 mmol/L (98-107); CHOLESTEROL 132.65 mg/dL (0-200); GLUCOSE 123 mg/dL (75-110); POTASSIUM 4.7 mmol/L (3.6-5.0); SODIUM 142.8 mmol/L (137-145); TRIGLYCERIDES 174 mg/dL (<150)
[2018-08-25] MEDS ORDERED: LEVOTHYROXINE SODIUM 0.05 MG TABLET PO SCH (06:00)
[2018-08-25 06:01] LABS: DIRECT LDL 75 mg/dL (<100)
[2018-08-25 06:02] LABS: VLDL CHOLESTEROL 34.8 mg/dL (10-31)
[2018-08-25] MEDS: LANSOPRAZOLE 15 MG TAB.RAP.DR PO SCH (06:21)
[2018-08-25] MEDS: ASPIRIN 81 MG TABLET, CHEWABLE PO SCH (09:05)
[2018-08-25] MEDS: VALSARTAN 160 MG TABLET PO SCH (09:05)
[2018-08-25] MEDS: HYDROCHLOROTHIAZIDE 12.5 MG TABLET PO SCH (09:06)
[2018-08-25] MEDS: METOPROLOL SUCCINATE 25 MG TAB.SR.24H PO SCH (09:06)
[2018-08-25] MEDS: ENOXAPARIN SODIUM INJ 80 MG/0.8 ML DISP.SYRIN SUBCUT SCH (09:07)
[2018-08-25] MEDS ORDERED: (PENDING PHARMACY ID) (Valsartan/Hydrochlorothiazide [Valsartan-Hctz 320-12.5 Mg Tab] 1 EA PO SCH (10:00)
--- NOTE | 2018-08-25 11:53 | PDOC DISCHARGE SUMMARY ---
General - Admit/Disc Date/PCP Admission Date/Primary Care Provider: 08/24/18 09:14 ISACC BENNETT MD Discharge Date: 08/25/18 - Discharge Diagnosis (1) Chest pain Is this a current diagnosis for this admission?: Yes (2) Palpitations Is this a current diagnosis for this admission?: Yes (3) Hyperlipidemia Is this a current diagnosis for this admission?: Yes (4) Hypertension Is this a current diagnosis for this admission?: Yes (5) Hypothyroidism Is this a current diagnosis for this admission?: Yes - Additional Information Resuscitation Status: Full Code Discharge Diet: Cardiac, Diabetic Discharge Activity: Activity As Tolerated, Balance Activity w/Rest Prescriptions: Aspirin [Aspirin 81 mg Chewable Tablet] 81 mg PO DAILY #90 tab.chew Metoprolol Succinate [Toprol Xl 25 mg Tab.sr] 25 mg PO Q12 #60 tab.sr.24h Home Medications: Levothyroxine Sodium [Synthroid 0.05 mg Tablet] 50 mcg PO Q6AM 04/05/13 Multivitamin [Multi-Vitamin Daily] 1 each PO DAILY 04/05/13 [place]hart-3 Fatty Acids/Fish Oil [Fish Oil 1,[address]] 1 each PO DAILY Pravastatin Sodium [Pravachol] 40 mg PO QHS 04/05/13 Saxagliptin HCl/Metformin HCl [Kombiglyze Xr 2.5-1,000 mg Tab] 1 tab PO BID Valsartan/Hydrochlorothiazide [Valsartan-Hctz 320-12.5 mg Tab] 1 each PO DAILY 04/11/13 Aspirin [Aspirin EC] 81 mg PO DAILY 07/31/16 Empagliflozin [Jardiance] 10 mg PO DAILY 08/24/18 Flaxseed Oil [Flax Seed Oil] 1,000 mg PO DAILY 08/24/18 Valacyclovir HCl [Valtrex 500 mg Tablet] 500 mg PO DAILY 08/24/18 Aspirin [Aspirin 81 mg Chewable Tablet] 81 mg PO DAILY #90 tab.chew 08/25/18 Metoprolol Succinate [Toprol Xl 25 mg Tab.sr] 25 mg PO Q12 #60 tab.sr.24h History of Present Illness History of Present Illness: CINTHIA COLLINS is a 73 year old female with a past medical history significant for hypertension, hyperlipidemia, diabetes mellitus, and remote vaginal cancer who presented to the emergency department today with a complaint of racing heartbeat and chest discomfort. The patient has had intermittent episodes of palpitations over the last several months (most often noted when lying on her left side) and actually has her first appointment scheduled with Dr. Willingham's office on Wednesday. 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 The patient states that on both occasions the episode resolved after Valsalva maneuver (she had read on the Internet that intentional cough could occasionally resolve rapid heart rates). She decided to be seen in the emergency department today as these episodes were different than previously; they were associated with lightheadedness and mild chest discomfort. She states that her chest discomfort was vague in nature, nonradiating, and also resolved with Valsalva. Evaluation in the emergency department was unremarkable. EKG demonstrated normal sinus rhythm without acute changes, benign chest x-ray, and essentially normal laboratory evaluation including a troponin of <0.012 and normal TSH. 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 The patient is referred to the hospitalist service for observational admission and chest pain rule out. Hospital Course Hospital Course: Patient was admitted with report of intermittent palpitations ongoing for the last several weeks but now accompanied by vague, nonradiating, chest discomfort the previous 2 mornings that resolved following a Valsalva maneuver. She was admitted for chest pain rule out as she has a heart score of 5 related to multiple risk factors including age, diabetes, hypertension, hyperlipidemia, obesity, and moderately suspicious HPI. Her initial evaluation was benign with a normal chest x-ray, reassuring EKG, unremarkable CBC, normal TSH, and chemistry that revealed mild kidney insufficiency which was previously known to the patient. Morning lab work included hemoglobin A1c of 7.2% and a lipid panel (LDL 75, HDL 47, triglycerides 174, total cholesterol 132) for risk stratification. Serial troponins were negative x3. She has remained in sinus rhythm since her arrival. Echocardiogram revealed a normal ejection fraction, mild LVH, mild to moderate diastolic dysfunction, and mild pulmonary hypertension. Cardiology services was consulted and recommended the patient be placed on metoprolol 25 mg twice daily. They have cleared her from acute MT and recommend outpatient follow-up to arrange for event monitoring and stress testing. The patient already had her first appointment scheduled with Dr. Willingham's office for next week; arrangements were made for the appointment to be moved up to tomorrow to obtain event monitor. At time of discharge, the patient is asymptomatic, maintaining oxygen saturations on room air while ambulatory, at her baseline function, and stable for discharge. She is provided a prescription for the metoprolol and is advised to continue her daily aspirin and statin therapy. She is encouraged to follow-up with Dr. Willingham's office as arranged and with her primary care provider within 1 week. She is instructed to return to the emergency department for any concerning symptoms. Physical Exam Vital Signs: Temp Pulse Resp BP Pulse Ox 97.8 F 60 15 125/61 99 08/25/18 08:37 08/25/18 08:37 08/25/18 08:37 08/25/18 08:37 08/25/18 08:37 Intake & Output 08/24/18 08/25/18 08/26/18 06:59 06:59 06:59 Intake Total 236 Balance 236 Weight 82.1 kg General appearance: PRESENT: no acute distress, cooperative, well-developed, well-nourished - Overweight Head exam: PRESENT: atraumatic, normocephalic Eye exam: PRESENT: conjunctiva pink, EOMI, PERRLA. ABSENT: scleral icterus Ear exam: PRESENT: normal external ear exam Mouth exam: PRESENT: moist, tongue midline Neck exam: ABSENT: carotid bruit, JVD, lymphadenopathy, thyromegaly Respiratory exam: PRESENT: clear to auscultation catherine, symmetrical, unlabored. ABSENT: rales, rhonchi, wheezes Cardiovascular exam: PRESENT: RRR, +S1, +S2. ABSENT: diastolic murmur, rubs, systolic murmur Pulses: PRESENT: normal dorsalis pedis pul Vascular exam: PRESENT: normal capillary refill GI/Abdominal exam: PRESENT: normal bowel sounds, soft. ABSENT: distended, guarding, mass, organolmegaly, rebound, tenderness Rectal exam: PRESENT: deferred Extremities exam: PRESENT: full ROM. ABSENT: calf tenderness, clubbing, pedal edema Neurological exam: PRESENT: alert, awake, oriented to person, oriented to place , oriented to time, oriented to situation, CN II-XII grossly intact. ABSENT: motor sensory deficit Psychiatric exam: PRESENT: appropriate affect, normal mood. ABSENT: homicidal ideation, suicidal ideation Skin exam: PRESENT: dry, intact, warm. ABSENT: cyanosis, rash Results Laboratory Results: 08/25/18 04:44 08/25/18 04:44 08/25/18 08/25/18 04:44 04:44 WBC 9.5 RBC 4.23 Hgb 12.8 Hct 38.4 MCV 91 MCH 30.4 MCHC 33.5 RDW 13.1 Plt Count 283 Sodium 142.8 Potassium 4.7 Chloride 102 Carbon Dioxide 29 Anion Gap 12 BUN 21 H Creatinine 1.10 Est GFR ( Amer) 59 L Est GFR (Non-Af Amer) 48 L Glucose 123 H Calcium 10.2 Triglycerides 174 H Cholesterol 132.65 LDL Cholesterol Direct 75 VLDL Cholesterol 34.8 H HDL Cholesterol 47 08/24/18 08/24/18 10:10 16:20 Troponin I < 0.012 < 0.012 Impressions: Chest X-Ray 08/24/18 06:20 IMPRESSION: No acute cardiopulmonary findings. Qualifiers - * PATIENT BEING DISCHARGED WITH ANY OF THE FOLLOWING DIAGNOSIS: No Plan Discharge Plan: Discharged home with self-care. Follow-up with Dr. Willingham's office tomorrow to arrange for outpatient cardiac stress test and event monitoring. Follow-up with primary care provider within 1 week. Time Spent: Less than 30 Minutes
[2018-08-25 12:02] VITALS: BP 175/70
--- NOTE | 2018-08-25 18:37 | PDOC PROGRESS REPORT ---
Subjective Progress Note for:: 08/25/18 Subjective:: Patient was placed on metoprolol succinate last night. This she tolerated well. She slept well. Patient does have a follow-up appointment with me. Patient seems to be doing better with gradual improvement. Pt is denying any chest arm or neck discomfort. Patient denying any PND, orthopnea. Patient denied any sustained palpitations, dizziness, syncope, near syncope. Patient denying any fever chills. Patient denying any other significant discomfort. Patient is maintaining sinus rhythm. Review of systems: Rest review of systems negative. Medications: Medications have been reviewed. Reason For Visit: CHEST PAIN Physical Exam Vital Signs: Temp Pulse Resp BP Pulse Ox 97.8 F 60 15 175/70 H 99 08/25/18 12:00 08/25/18 12:00 08/25/18 12:00 08/25/18 12:00 08/25/18 12:00 Intake & Output 08/24/18 08/25/18 08/26/18 06:59 06:59 06:59 Intake Total 236 Balance 236 Weight 82.1 kg Exam: GENERAL: well-nourished and in no acute distress. Alert and oriented x3 HEAD: Atraumatic, normocephalic. EYES: JUNE, sclera anicteric, conjunctiva are normal. ENT: Moist mucous membranes. No oral ulcerations or bleeding gums noted. No obvious ear, nose or throat abnormalities noted. NECK: supple without lymphadenopathy. Trachea is central. No cervical or axillary lymphadenopathy noted. Carotids are 2+, JVD WNL LUNGS: Breath sounds clear bilaterally. No wheezes rales or rhonchi noted. No significant dullness noted on percussion. CHEST: Palpation of the chest wall shows no significant chest wall tenderness. 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 ABDOMEN: Soft, no significant tenderness appreciated, normoactive bowel sounds. No guarding, no rebound. No rigidity noted . No masses appreciated. EXTREMITIES: Pedal pulses are 1-2+, no calf tenderness noted. No clubbing or cyanosis. negative pedal edema noted NEUROLOGICAL: Focused neurological exam showed no significant neurologic deficit. Normal speech, no focal weakness appreciated. PSYCH: Normal mood, normal affect. Judgment and insight within normal limits. SKIN: No significant ecchymosis, skin is noted to be warm. MUSCULOSKELETAL EXAM: No significant acute joint swelling noted. Results Laboratory Results: 08/25/18 04:44 08/25/18 04:44 08/25/18 08/25/18 04:44 04:44 WBC 9.5 RBC 4.23 Hgb 12.8 Hct 38.4 MCV 91 MCH 30.4 MCHC 33.5 RDW 13.1 Plt Count 283 Sodium 142.8 Potassium 4.7 Chloride 102 Carbon Dioxide 29 Anion Gap 12 BUN 21 H Creatinine 1.10 Est GFR ( Amer) 59 L Est GFR (Non-Af Amer) 48 L Glucose 123 H Calcium 10.2 Triglycerides 174 H Cholesterol 132.65 LDL Cholesterol Direct 75 VLDL Cholesterol 34.8 H HDL Cholesterol 47 08/24/18 08/24/18 10:10 16:20 Troponin I < 0.012 < 0.012 EKG Comments: Sinus rhythm, no acute ST-T wave changes are noted. Impressions: Chest X-Ray 08/24/18 06:20 IMPRESSION: No acute cardiopulmonary findings. 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 use status Diabetes mellitus complication status : with unspecified complications Qualified Code(s): E11.8 - Type 2 diabetes mellitus with unspecified complications Is this a current diagnosis for this admission?: Yes (3) Palpitations Is this a current diagnosis for this admission?: Yes (4) Hyperlipidemia Qualifiers: Hyperlipidemia type: unspecified Qualified Code(s): E78.5 - Hyperlipidemia , unspecified Is this a current diagnosis for this admission?: Yes (5) Hypertension Qualifiers: Hypertension type: unspecified Qualified Code(s): I10 - Essential (primary ) hypertension Is this a current diagnosis for this admission?: Yes - Notes Notes: Patient has done well overnight without any recurrent chest pain and no palpitations. Feel that patient is safe for discharge with outpatient close cardiology follow-up. Patient did tolerate metoprolol succinate. Chest pain: Chest pain related to palpitations. Recommend that patient be placed on cardiac event monitor on discharge and have a outpatient stress test scheduled. Patient does have a follow-up appointment with me on Wednesday which she should keep. Palpitations: Patient will benefit from a cardiac event monitor which can be scheduled from my office. In fact patient could go to my office to get this done on discharge if needed. Hypertension: Blood pressure goal should be 140/90. Continue with metoprolol succinate 25 mg p.o. twice daily. This was discussed with Dr. Mello. Hyperlipidemia: Continue with current statin therapy. Diabetes: Recommend good control of blood sugar but avoid any hypo-or hyperglycemia. - Time Time with patient: Greater than 35 minutes - More than 50% of the time spent coordinating care, discussing management plans with involved caregivers. Management plans discussed with involved personnels. Medical decision making was of moderate to high complexity, patient's has multiple comorbidities. Medications reviewed and adjusted accordingly: Yes
== END 2018-08-25 12:30 | disposition home or self-care (01) ==
LOC: ER 05:55 → EH 09:14 → 4N 12:16
PROVIDERS: ADMIT Internal Medicine; ATTEND Internal Medicine
DX: R00.2 Palpitations (principal); R07.89 Other chest pain; E78.5 Hyperlipidemia, unspecified; I10 Essential (primary) hypertension; E03.9 Hypothyroidism, unspecified; E11.8 Type 2 diabetes mellitus with unspecified complications; R42 Dizziness and giddiness; I49.3 Ventricular premature depolarization; N28.9 Disorder of kidney and ureter, unspecified; I27.20 Pulmonary hypertension, unspecified; E66.3 Overweight; Z79.899 Other long term (current) drug therapy; Z79.82 Long term (current) use of aspirin; Z79.84 Long term (current) use of oral hypoglycemic drugs; Z85.44 Personal history of malignant neoplasm of other female genital organs; Z85.41 Personal history of malignant neoplasm of cervix uteri; Z90.710 Acquired absence of both cervix and uterus; Z82.49 Family history of ischemic heart disease and other diseases of the circulatory system; Z90.49 Acquired absence of other specified parts of digestive tract
CPT/HCPCS: 93005; 99285; 36415 ×2; 82962 ×2; 84443; 85025; 85027; 80048; 80053; 84484; 83036; 80061; 93306; 71045; 93010; G0378 ×3; A9270 ×10; J3490 ×2; J1650